=== PATIENT | male | born 1955 | race Caucasian/White ===

== ENCOUNTER 2017-10-05 22:38 | Observation (INO) | payer OTHER ==
[2017-10-05] MEDS ORDERED: SODIUM CHLORIDE 0.9% 1,000 ML IV STA (23:25)
[2017-10-05] MEDS ORDERED: DEXAMETHASONE SOD PHOSPHATE 10 MG/ML 1 ML VIAL IV STA (23:25)
[2017-10-05] MEDS ORDERED: VANCOMYCIN IV PER PHARMACY 1 EACH MISC MISCELLANE PRN (23:38)
[2017-10-05] MEDS ORDERED: AMPICILLIN-SULBACTAM 3 GM in SODIUM CHLORIDE 0.9% 100 ML IVPB STA (23:38)
[2017-10-05] MEDS ORDERED: SODIUM CHLORIDE 0.9% 1,000 ML IV ONE (23:38)
--- NOTE | 2017-10-05 23:38 | ED ---
General Adult HPI - General Chief complaint: Skin/Abscess/Foreign Body Stated complaint: Rash,swelling Time Seen by Provider: 10/05/17 22:57 Source: patient, RN notes reviewed, old records reviewed Mode of arrival: ambulatory Limitations: no limitations - History of Present Illness Initial comments: This is a 8-year-old male the ER for evaluation. Patient does say for evaluation regarding lower extremity rash, fever. Patient states he has a significant medical history, takes no medication. He was seen at urgent care prior to arrival here and sent to the ER for evaluation. He denies cough or congestion denies any other rashes states rashes started today as well as fever. No recent change in medications no travel history no known sick contacts - Related Data Home Medications Medication Instructions Recorded Confirmed Aspirin [Adult Low Dose Aspirin EC] 81 mg PO DAILY 06/20/17 06/20/17 Carvedilol [Coreg] 6.25 mg PO PC-SUPPER 06/20/17 06/20/17 Cyclobenzaprine [Flexeril] 10 mg PO HS 06/20/17 06/20/17 Ergocalciferol [Vitamin D2] 50,000 unit PO FR 06/20/17 06/20/17 Hydrocodone/Acetaminophen 1 each PO DAILY PRN 06/20/17 06/20/17 [Hydrocodon-Acetaminophen 5-325] Pantoprazole Sodium 40 mg PO HS 06/20/17 06/20/17 Ramipril [Altace] 10 mg PO DAILY 06/20/17 06/20/17 Sertraline [Zoloft] 100 mg PO DAILY 06/20/17 06/20/17 Simvastatin [Zocor] 40 mg PO HS 06/20/17 06/20/17 amLODIPine [Norvasc] 5 mg PO DAILY 06/20/17 06/20/17 oxyCODONE HCL/ACETAMINOPHEN 1 tab PO DAILY PRN 06/20/17 06/20/17 [Endocet 5-325 mg] Allergies Allergy/AdvReac Type Severity Reaction Status Date / Time No Known Allergies Allergy Verified 10/05/17 22:54 Review of Systems ROS Statement: Those systems with pertinent positive or pertinent negative responses have been documented in the HPI. ROS Other: All systems not noted in ROS Statement are negative. Past Medical History Past Medical History: CVA/TIA, GERD/Reflux, Hypertension, Myocardial Infarction ([place]), Osteoarthritis ([place]) Additional Past Medical History / Comment(s): series of TIAs 2012-no effects, rectal bleeding 2 months ago, Last Myocardial Infarction Date:: 06/24/2011 History of Any Multi-Drug Resistant Organisms: None Reported Past Surgical History: Adenoidectomy, Heart Catheterization With Stent, Tonsillectomy Past Anesthesia/Blood Transfusion Reactions: No Reported Reaction Date of Last Stent Placement:: 2011 Past Psychological History: Depression Smoking Status: Current every day smoker Past Alcohol Use History: Daily Past Drug Use History: None Reported - Past Family History Brother(s) Family Medical History: Cancer Mother Family Medical History: Cancer General Exam - General Exam Comments Initial Comments: Patient is bilateral lower extremity vasculitic type reaction, petechiae Limitations: no limitations General appearance: alert, in no apparent distress Head exam: Present: atraumatic, normocephalic, normal inspection Eye exam: Present: normal appearance, PERRL, EOMI. Absent: scleral icterus, conjunctival injection, periorbital swelling ENT exam: Present: normal exam, mucous membranes moist Neck exam: Present: normal inspection. Absent: tenderness, meningismus, lymphadenopathy Respiratory exam: Present: normal lung sounds bilaterally. Absent: respiratory distress, wheezes, rales, rhonchi, stridor Cardiovascular Exam: Present: regular rate, normal rhythm, normal heart sounds. Absent: systolic murmur, diastolic murmur, rubs, gallop, clicks GI/Abdominal exam: Present: soft, normal bowel sounds. Absent: distended, tenderness, guarding, rebound, rigid Extremities exam: Present: normal inspection, full ROM, normal capillary refill. Absent: tenderness, pedal edema, joint swelling, calf tenderness Back exam: Present: normal inspection Neurological exam: Present: alert, oriented X3, CN II-XII intact Psychiatric exam: Present: normal affect, normal mood Skin exam: Present: warm, dry, intact, normal color. Absent: rash Course Vital Signs 10/05/17 22:50 Temperature 98.8 F Pulse Rate 108 H Respiratory 18 Rate Blood Pressure 165/100 O2 Sat by Pulse 99 Oximetry EKG Findings - EKG Comments: EKG Findings:: EKG shows sinus rhythm rate of 98, HI 140, QRS 74, QTc 434 Medical Decision Making - Medical Decision Making 8-year-old male the ER for evaluation regarding fever, lower extremity vasculitis. - Lab Data Result diagrams: 10/05/17 23:41 10/05/17 23:41 Disposition Clinical Impression: Vasculitis, Fever, Weakness Disposition: ADMITTED IP TO THIS HOSP Condition: Good Is patient prescribed a controlled substance at d/c from ED?: No
[2017-10-05 23:52] LABS: Basophils % (A) 0 %; Eosinophils # (A) 0.5 k/uL (0-0.7); Eosinophils % (A) 8 %; HCT 51.6 % (39.0-53.0); HGB 17.8 gm/dL (13.0-17.5); Lymphocytes # (A) 1.6 k/uL (1.0-4.8); Lymphocytes % (A) 24 %; MCH 34.2 pg (25.0-35.0); MCHC 34.6 g/dL (31.0-37.0); MCV 98.8 fL (80.0-100.0); Monocytes # (A) 0.3 k/uL (0-1.0); Monocytes % (A) 5 %; Neutrophils # (A) 4.1 k/uL (1.3-7.7); Neutrophils % (A) 61 %; Platelet Count 265 k/uL (150-450); RBC 5.22 m/uL (4.30-5.90); RDW 14.3 % (11.5-15.5); WBC 6.7 k/uL (3.8-10.6)
[2017-10-06] MEDS ORDERED: VANCOMYCIN 2,000 MG in SODIUM CHLORIDE 0.9% 500 ML IVPB ONE ×2
[2017-10-06 00:02] LABS: Appearance,Urine Clear (Clear); Bilirubin,Urine Negative (Negative); Blood,Urine Negative (Negative); Color,Urine Light Yellow; Glucose,Urine (UA) Negative (Negative); Ketones,Urine Negative (Negative); Leukocyte Esterase,Urine Negative (Negative); Nitrite,Urine Negative (Negative); PH, Urine 5.5 (5.0-8.0); Protein,Urine Negative (Negative); Specific Gravity,Urine 1.004 (1.001-1.035); Urobilinogen,Urine <2.0 mg/dL (<2.0)
[2017-10-06 00:05] LABS: ALT 48 U/L (21-72); AST 29 U/L (17-59); Albumin 3.8 g/dL (3.5-5.0); Alkaline Phosphatase 71 U/L (38-126); Anion Gap 10 mmol/L; Blood Urea Nitrogen 11 mg/dL (9-20); Calcium 9.7 mg/dL (8.4-10.2); Carbon Dioxide 23 mmol/L (22-30); Chloride 101 mmol/L (98-107); Glucose 105 mg/dL (74-99); Magnesium 1.8 mg/dL (1.6-2.3); Phosphorus 4.3 mg/dL (2.5-4.5); Potassium 4.5 mmol/L (3.5-5.1); Sodium 134 mmol/L (137-145); Total Bilirubin 0.7 mg/dL (0.2-1.3); Total Protein 6.5 g/dL (6.3-8.2)
[2017-10-06 00:10] LABS: Partial Thromboplastin Time 23.5 sec (22.0-30.0); Prothrombin Time 10.1 sec (9.0-12.0)
[2017-10-06 00:11] LABS: Creatine Kinase 44 U/L (55-170)
[2017-10-06 00:24] LABS: Creatine Kinase MB <0.2 ng/mL (0.0-2.4); Troponin I <0.012 ng/mL (0.000-0.034)
--- NOTE | 2017-10-06 00:42 | XR ---
EXAMINATION TYPE: XR chest 2V DATE OF EXAM: 10/06/2017 COMPARISON: NONE HISTORY: Chest pain TECHNIQUE: Frontal and lateral views of the chest are obtained. FINDINGS: Heart and mediastinum are normal. Lungs are clear. Diaphragm is normal. Bony thorax is int act. There is old right-sided healed rib fracture. There is spurring in the thoracic spine. IMPRESSION: No active cardiopulmonary disease. Normal heart.
[2017-10-06] MEDS: AMPICILLIN-SULBACTAM 3 GM in SODIUM CHLORIDE 0.9% 100 ML IVPB SCH ×4 (05:36→23:53)
[2017-10-06] MEDS: ENOXAPARIN 40 MG/0.4 ML SYRINGE SQ SCH (08:06)
[2017-10-06] MEDS ORDERED: NITROGLYCERIN SL TABS 0.4 MG TAB SUBLINGUAL PRN (14:40)
[2017-10-06] MEDS: VANCOMYCIN 2,000 MG in SODIUM CHLORIDE 0.9% 500 ML IVPB SCH (14:43)
[2017-10-06] MEDS ORDERED: DEXAMETHASONE SOD PHOSPHATE 4 MG/ML 1 ML VIAL IM SCH (15:00)
[2017-10-06] MEDS: DEXAMETHASONE SOD PHOSPHATE 4 MG/ML 1 ML VIAL IVP SCH ×3 (18:09→23:54)
--- NOTE | 2017-10-06 19:56 | HP ---
HISTORY AND PHYSICAL CHIEF COMPLAINT: Petechial rash. HISTORY OF PRESENT ILLNESS: This gentleman was admitted in my absence when he came to emergency room with a rash. It was predominantly on the lower extremities and was red, nummular and in various sizes and quite hemorrhagic. He had no fever, hematuria, joint pain, etc. There is no obvious etiology. He was admitted with a diagnosis of vasculitis. MMODL / IJN: [id number] /
--- NOTE | 2017-10-06 19:56 | PN ---
PROGRESS NOTE CHIEF COMPLAINT: Generalized maculopapular rash. HISTORY OF PRESENT ILLNESS: This gentleman is feeling fairly well, but the rash is not receding. He has not had any hematuria, fever, chills, joint pain, etc. PHYSICAL EXAM: He still has extensive erythematous mostly macular dermatitis of the lower legs, thighs, trunk and arms. The remainder of exam is normal. IMPRESSION: Question vasculitis. Continue workup and evaluation and will start steroids. MMODL / IJN: [id number] /
[2017-10-06] MEDS ORDERED: PANTOPRAZOLE 40 MG TABLET PO SCH (21:00)
[2017-10-07] MEDS: VANCOMYCIN 2,000 MG in SODIUM CHLORIDE 0.9% 500 ML IVPB SCH ×2 (01:16→13:02)
[2017-10-07] MEDS: AMPICILLIN-SULBACTAM 3 GM in SODIUM CHLORIDE 0.9% 100 ML IVPB SCH ×2 (05:37→11:21)
[2017-10-07] MEDS: DEXAMETHASONE SOD PHOSPHATE 4 MG/ML 1 ML VIAL IVP SCH ×2 (05:38→11:21)
[2017-10-07 07:59] LABS: Anion Gap 7 mmol/L; Blood Urea Nitrogen 10 mg/dL (9-20); Calcium 8.9 mg/dL (8.4-10.2); Carbon Dioxide 27 mmol/L (22-30); Chloride 106 mmol/L (98-107); Glucose 146 mg/dL (74-99); Potassium 4.2 mmol/L (3.5-5.1); Sodium 140 mmol/L (137-145)
[2017-10-07] MEDS ORDERED: SERTRALINE 100 MG TAB PO SCH (09:00)
[2017-10-07] MEDS ORDERED: ASPIRIN 81 MG PO SCH (09:00)
[2017-10-07] MEDS ORDERED: CARVEDILOL 6.25 MG TAB PO SCH (09:00)
[2017-10-07] MEDS ORDERED: amLODIPine 5 MG TAB PO SCH (09:00)
[2017-10-07 09:05] LABS: Lyme IgG/IgM 0.1 Index
[2017-10-07] MEDS: ENOXAPARIN 40 MG/0.4 ML SYRINGE SQ SCH (09:06)
[2017-10-07 15:32] VITALS: BP 155/83; PULSE 92; RESP 18; TEMP 98
[2017-10-08] MEDS ORDERED: VANCOMYCIN TROUGH DUE 1 EACH MISC MISCELLANE ONE (12:00)
--- NOTE | 2017-10-09 19:37 | DS ---
DISCHARGE SUMMARY CHIEF COMPLAINT: Pain, swelling, redness and rash in the left arm as well as petechial rashes on the arms, legs and trunk. HISTORY OF PRESENT ILLNESS AND PHYSICAL EXAM: Details of this man's history and physical can be found in the initial workup. LABORATORY STUDIES: While he was in a hospital he had laboratory studies, details of which can be found in the laboratory section of his chart. COURSE IN HOSPITAL: After admission, he was placed on bedrest and started on intravenous fluids and worked up for various etiologies of his rash. He was placed on IV steroids and it began to fade. He had no other problems and it was felt that he could be discharged. He will continue his followup as an outpatient. He will go on to go home on a Medrol Dosepak. FINAL DIAGNOSES: 1. Possible vasculitis, etiology unknown. 2. Chronic obstructive pulmonary disease. OPERATIONS: None. CONSULTATION: None. He is improved. MMODL / IJN: [id number] /
== END 2017-10-07 18:00 | disposition home or self-care (01) ==
LOC: EC 22:38 → 3SUR 23:37 → INTOOBSV 23:37 → UNDODISIN 10-07 18:00
PROVIDERS: ADMIT Family Medicine; ATTEND Family Medicine
DX: R21 Rash and other nonspecific skin eruption (principal); R23.3 Spontaneous ecchymoses; R50.9 Fever, unspecified; M79.602 Pain in left arm; R53.1 Weakness; L30.9 Dermatitis, unspecified; M79.89 Other specified soft tissue disorders; F17.200 Nicotine dependence, unspecified, uncomplicated; J44.9 Chronic obstructive pulmonary disease, unspecified; M19.90 Unspecified osteoarthritis, unspecified site; Z86.73 Personal history of transient ischemic attack (TIA), and cerebral infarction without residual deficits; I25.2 Old myocardial infarction; I10 Essential (primary) hypertension; Z79.82 Long term (current) use of aspirin; Z79.899 Other long term (current) drug therapy; K21.9 Gastro-esophageal reflux disease without esophagitis; Z95.5 Presence of coronary angioplasty implant and graft; F32.9 Major depressive disorder, single episode, unspecified; Z80.9 Family history of malignant neoplasm, unspecified
CPT/HCPCS: 96376 ×2; 96361 ×2; 96366 ×2; 96372 ×2; 96365; 96367; 96375; 99285; 36415; 93005; 97161; 80053; 80048; 85652; 82550; 82553; 83735; 84100; 84484; 85025; 85610; 85730; 81003; 87040; 86618; 86038; 87086; 71046; G0378 ×3; J3370 ×2; J1100 ×3; J1650 ×2; J0295 ×2

== ENCOUNTER → 2019-01-07 | Outpatient (CLI) | payer OTHER ==
--- NOTE | 2019-01-08 10:28 | MR ---
EXAMINATION TYPE: MR knee RT wo con DATE OF EXAM: 01/07/2019 COMPARISON: Outside images of the right knee dated 12/23/2018 HISTORY: Outer right knee pain TECHNIQUE: Multiplanar, multisequence imaging of the right knee is performed without IV contrast. FINDINGS: MEDIAL MENISCUS: There is some high signal in the inferior aspect of the meniscal body and posterior horn of the medial meniscus with a very small radial tear of the free edge of the posterior horn of t he medial meniscus. High signal is related to meniscal contusion. LATERAL MENISCUS AND ASSOCIATED STRUCTURES: There is an oblique tear of posterior horn of the lateral meniscus contiguous with the inferior articular surface with underlying bone marrow edema of the pos terior lateral corner of the knee, mild. There is also a radial tear of the posterior horn of the lat eral meniscus and diminutive appearance of the meniscal body. The anterior horn and meniscal roots kirk th appear intact. There is an associated parameniscal cyst measuring 7 mm. There is no evidence of me niscal extrusion. There is a partial thickness tear of the meniscal femoral ligament with linear incr eased signal on coronal fat-sat PD image 21. The popliteus tendon displays mild increased signal of t he myotendinous junction without discrete tear. The lateral collateral ligament and biceps femoris te ndon are intact. CRUCIATE LIGAMENTS: There is abnormal orientation of the anterior cruciate ligament with subtle laxit y seen and increased signal throughout indicative of a low-grade partial-thickness tear. Posterior cr uciate ligament is intact and unremarkable. COLLATERAL LIGAMENTS: The medial collateral ligament and lateral collateral ligament complex are inta ct and unremarkable. EXTENSOR MECHANISM: Visualized quadriceps and patellar tendons are intact. There is minimal increased signal of the insertional fibers of both the quadriceps and patellar tendon. EFFUSION: A physiologic amount of fluid is seen in the suprapatellar fossa, however there is some in ternal debris such as on PD axial fat sat image 21 that can be seen in synovitis. POPLITEAL CYST: There is a multiloculated popliteal cyst that is seen. TRICOMPARTMENT SPACES: There are small tricompartmental osteophytes and mild medial compartment joint space narrowing. CARTILAGE: There is increased signal in the patellofemoral cartilage and generalized thinning of the lateral patellar facet. Focal fissure is seen of the patellar apex. In the lateral compartment there is a partial thickness cartilaginous defect of the weightbearing surface anteriorly on the lateral fe moral condyle measuring 1.2 cm. In the medial compartment there is a central partial thickness defect of the weightbearing surface measuring 9 mm. BONE MARROW SIGNAL: Posterior lateral corner opposing surface lateral femoral condyle and more pronou nced tibial plateau bone marrow edema is overall mild. OTHER: There is a small amount of nonspecific prepatellar and infrapatellar subcutaneous edema. IMPRESSION: 1. Oblique tear of the posterior horn of lateral meniscus contiguous with the inferior articular surf nery and radial tear of the posterior horn of the lateral meniscus. There is other evidence of low-gra de posterior lateral corner injury as there is a partial tear of the meniscofemoral ligament, mild kirk ne marrow edema of the lateral femoral condyle and tibial plateau, this tear of the ACL, and mild ten dinosis of the popliteus muscle at the myotendinous junction. There is also a 7 mm parameniscal cyst. 2. Subtle and minimal radial tear of the posterior horn of the medial meniscus at its free edge. Meni scal contusion versus myxoid degeneration is also seen of the inferior aspect of the medial meniscal body. 3. Complexity of the suprapatellar joint fluid (although there is a physiologic amount of fluid prese nt). Internal complexity can be seen in synovitis. 4. Mild tricompartmental arthrosis and chondrosis with partial-thickness tears of the medial and late ral compartments and fissure of the patellar apex. 5. Minimal increased signal of the insertional fibers of the quadriceps and patellar tendons suggesti ng mild tendinosis. Nonspecific overlying prepatellar and infrapatellar subcutaneous edema.
== END | disposition home or self-care (01) ==
LOC: RADMRIMAIN 11:02
PROVIDERS: ATTEND Orthopaedic Surgery
DX: S83.281A Other tear of lateral meniscus, current injury, right knee, initial encounter (principal); S83.241A Other tear of medial meniscus, current injury, right knee, initial encounter; S83.501A Sprain of unspecified cruciate ligament of right knee, initial encounter; M17.11 Unilateral primary osteoarthritis, right knee; M67.863 Other specified disorders of tendon, right knee

== ENCOUNTER 2019-02-05 07:30 | Day surgery (SDC) | payer OTHER ==
[2019-02-01 12:49] VITALS: BMI 33.1
--- NOTE | 2019-02-04 09:28 | HP ---
HISTORY AND PHYSICAL CHIEF COMPLAINT: Right knee pain. HISTORY OF PRESENT ILLNESS: The patient is a 63-year-old male who presents with progressive right knee pain along with giving way over the past several months. He notes intermittent giving way. He has been using a cane. He has tried an injection and medications with only partial temporary relief. PAST MEDICAL HISTORY: Significant for depression, hypercholesterolemia, chronic obstructive pulmonary disease, coronary artery disease, hypertension. PAST SURGICAL HISTORY: Significant for a cardiac stent placed placement. CURRENT MEDICATIONS: 1. Amlodipine. 2. Carvedilol. 3. Cyclobenzaprine. 4. Hydrocodone. 5. Ramipril. 6. Simvastatin. 7. Sertraline. He denies drug allergies. FAMILY HISTORY: Significant for cancer. SOCIAL HISTORY: Significant for 1-1/2 pack per day tobacco use and daily alcohol use. 16 POINT REVIEW OF SYSTEMS: Otherwise reviewed and is noncontributory. PHYSICAL EXAMINATION: On examination, the patient is approximately 6 foot 3, 260 pounds of endomorphic habitus. HEENT exam is nonfocal. NECK: Supple. He has painless passive motion of the right hip. Straight leg raise is negative. Active motion right knee -12 to 100 degrees of flexion. He has mild effusion. He is tender about the lateral joint line. Collaterals are stable, Reba is negative, Nitin's elicits lateral pain. His distal neurovascular appears intact in the right lower extremity. MRI report from 01/07/2019 of the right knee shows a posterior lateral meniscal tear along with ACL sprain. Mild tricompartmental osteoarthrosis noted. IMPRESSION: Symptomatic right knee lateral meniscal tear. RECOMMENDATIONS: I talked to the patient at length regarding his condition along with treatment options. At this point, he is quite symptomatic, having pain and mechanical symptoms despite adequate conservative measures. After thorough discussion, he opts to proceed with surgery. We will plan to proceed with arthroscopic evaluation of the right knee with possible partial lateral meniscectomy. Risks and benefits were discussed at length in layman's terms. We will likely perform that as an outpatient procedure. MMODL / IJN: [id number] / MTDD
[~2019-02-05 07:30] MED LIST: DEXAMETHASONE SOD PHOSPHATE 10 MG/ML 1 ML VIAL IV ONE; LACTATED RINGERS 1,000 ML IV SCH; LIDOCAINE 1% 20 ML VIAL (10MG/ML) FOR IV START INTRADERMA PRN; MIDAZOLAM 2 MG/2 ML VIAL IV PRN; ONDANSETRON 4 MG/2 ML VIAL IVP ONE; SCOPOLAMINE 1.5MG/72HR PATCH TRANSDERM ONE; ceFAZolin 3 GM in SODIUM CHLORIDE 0.9% 100 ML IVPB ONE
[2019-02-05] MEDS ORDERED: METOPROLOL TARTRATE 5 MG/5 ML VIAL IVP ONE (09:40)
[2019-02-05] MEDS ORDERED: diphenhydrAMINE 50 MG/ML 1 ML VIAL ONE (10:43)
[2019-02-05] MEDS ORDERED: LIDOCAINE 1% INJ 10MG/ML (20 ML MDV) ONE (10:43)
[2019-02-05] MEDS ORDERED: MIDAZOLAM 2 MG/2 ML VIAL ONE (10:43)
[2019-02-05] MEDS ORDERED: SUCCINYLCHOLINE CHLORIDE VIAL 200 MG/10 ML VIAL IV ONE (10:43)
[2019-02-05] MEDS ORDERED: KETAMINE 10 MG/ML 20 ML VIAL ONE (10:43)
[2019-02-05] MEDS ORDERED: PROPOFOL 10 MG/ML 20 ML VIAL IV ONE (10:43)
[2019-02-05] MEDS ORDERED: fentaNYL (PF) 50 MCG/ML 2 ML AMP ONE (10:43)
[2019-02-05] MEDS ORDERED: ALBUTEROL INHALER 60 PUFF/8 GM INHALER INHALATION ONE (10:43)
[2019-02-05] MEDS ORDERED: EPINEPHrine (PF) 1 ML in SODIUM CHLORIDE 0.9% IRRIGATIO 3,000 ML IRRIGATION ONE ×4 (11:12)
--- NOTE | 2019-02-05 11:46 | P.OP ---
Date of Procedure: 02/05/19 Preoperative Diagnosis: Right knee internal derangement Postoperative Diagnosis: Right knee middle one third lateral meniscal tear/posterior medial meniscal tear/reactive synovitis of the medial, lateral, and patellofemoral compartments Procedure(s) Performed: Right knee arthroscopic partial lateral meniscectomy/partial medial meniscectomy/partial synovectomy of the medial, lateral, and patellofemoral compartments. Anesthesia: GETA Surgeon: Zeeshan Oh Estimated Blood Loss (ml): 10 Pathology: none sent Condition: stable Disposition: PACU Indications for Procedure: The patient is a 63-year-old male presents with progressive right knee pain and mechanical symptoms despite conservative measures. A discussion of the risks and benefits of operative intervention was made with patient. He opted to proceed with surgery. Operative risks to include infection, neurovascular injury, development of blood clots, possible incomplete resolution of symptoms, possible worsening symptoms and need for subsequent procedures was discussed. Informed consent was obtained. Operative Findings: As below Description of Procedure: The patient was brought to the operating room, and after induction of general anesthesia examined the right knee. Collaterals were stable, Reba was negative, and posterior drawer was negative. The right lower extremity was prepped and draped in a normal fashion. A superior lateral portal was made through a 3 mm skin incision superior and lateral to the patella. This was used for outflow. A lateral portal was made through a 5 mm vertical skin incision lateral to the patella tendon above the joint line. Diagnostic arthroscopy was performed. On inspection of the medial compartment, and oblique tear was noted involving the middle to posterior one third in the white-white junction.. This was debrided back to stable base with straight baskets and a motorized shaver. On inspection of the notch, the anterior cruciate ligament appeared to be intact. On inspection of the lateral compartment a complex tear involving the anterior to middle one third was noted in the white-red junction. This was debrided back to stable base with straight baskets and a motorized shaver. The remaining lateral meniscus was stable and intact.. On inspection of the patellofemoral articulation there was chondral fibrillation however no loose chondral fragments. The gutters were clear debris. The knee was then thoroughly irrigated. The portals were closed with Steri-Strips. A sterile dressing was applied in addition to a compression stocking. The patient was awoken from general anesthesia and transferred to recovery room in good condition. Blood loss was estimated at 10 mL. No complications were incurred.
[2019-02-05 11:55] VITALS: TEMP 97.4
[2019-02-05] MEDS: HYDROmorphone 0.5 MG/0.5 ML SYRINGE IVP PRN ×2 (11:59→12:05)
[2019-02-05] MEDS: fentaNYL (PF) 50 MCG/ML 2 ML AMP IVP ONE ×2 (12:13→12:18)
[2019-02-05 12:35] VITALS: BP 151/80; PULSE 70; RESP 18
== END 2019-02-05 13:05 | disposition home or self-care (01) ==
LOC: OR 07:30
PROVIDERS: ATTEND Orthopaedic Surgery
DX: S83.241A Other tear of medial meniscus, current injury, right knee, initial encounter (principal); S83.281A Other tear of lateral meniscus, current injury, right knee, initial encounter; X58.XXXA Exposure to other specified factors, initial encounter; I10 Essential (primary) hypertension; E78.00 Pure hypercholesterolemia, unspecified; F32.9 Major depressive disorder, single episode, unspecified; J44.9 Chronic obstructive pulmonary disease, unspecified; I25.811 Atherosclerosis of native coronary artery of transplanted heart without angina pectoris; E78.5 Hyperlipidemia, unspecified; I25.2 Old myocardial infarction; Z95.5 Presence of coronary angioplasty implant and graft; K21.9 Gastro-esophageal reflux disease without esophagitis; F17.210 Nicotine dependence, cigarettes, uncomplicated; Z80.9 Family history of malignant neoplasm, unspecified; Z79.899 Other long term (current) drug therapy
CPT/HCPCS: 84132; 29880; J2250; J0330; J1200; J1100; J0690; J2405; J0171; J2001; J3010; J2704; J1170

== ENCOUNTER 2020-10-21 18:59 | Emergency (ER) | payer OTHER ==
[2020-10-21 19:17] VITALS: BP 105/65; PULSE 79; RESP 16; TEMP 97.6
--- NOTE | 2020-10-21 19:40 | ED ---
Fall HPI - General Chief Complaint: Fall Stated Complaint: ETOH/Fall Time Seen by Provider: 10/21/20 19:15 Source: patient, EMS Mode of arrival: EMS - History of Present Illness Initial Comments: Patient is a 65-year-old male who presents emergency Department with reported left shoulder pain. Patient reports that he was at the [employer] when he fell onto his left shoulder and face. She denies loss of consciousness. He was reporting to left shoulder pain. Unable to get up on his own and therefore the [employer] employment service specialist called EMS. He was not given anything for pain control. Denies any numbness tingling or weakness into his hand. No hand, wrist or elbow pain. He does have dry blood noted to his right nare. No active bleeding. He denies any headaches, visual changes or neck pain. No shortness of breath. No pain in his lower extremities. Patient not on any blood thinners. No syncope. No other alleviating, precipitating or modifying factors - Related Data Home Medications Medication Instructions Recorded Confirmed Ergocalciferol [Vitamin D2 50,000 unit PO Q30D 06/20/17 02/05/19 (DRISDOL)] Hydrocodone/Acetaminophen 1 tab PO BID PRN 06/20/17 02/05/19 [Hydrocodone/Acetaminophen 5-325] Pantoprazole Sodium 40 mg PO HS 06/20/17 02/05/19 Sertraline [Zoloft] 100 mg PO Q2D 06/20/17 02/05/19 Simvastatin [Zocor] 40 mg PO HS 06/20/17 02/05/19 amLODIPine [Norvasc] 5 mg PO QAM 06/20/17 02/05/19 carvediloL [Coreg] 6.25 mg PO QAM 06/20/17 02/05/19 Nitroglycerin Sl Tabs [Nitrostat] 0.4 mg SUBLINGUAL Q5M PRN 10/06/17 02/05/19 QUEtiapine [SEROquel] 25 mg PO HS 02/01/19 02/05/19 Ramipril [Altace] 10 mg PO QAM 02/01/19 02/05/19 Previous Rx's Medication Instructions Recorded Ibuprofen 800 mg PO BID PRN #30 tablet 02/05/19 Allergies Allergy/AdvReac Type Severity Reaction Status Date / Time No Known Allergies Allergy Verified 02/01/19 12:33 Review of Systems ROS Statement: Those systems with pertinent positive or pertinent negative responses have been documented in the HPI. ROS Other: All systems not noted in ROS Statement are negative. Past Medical History Past Medical History: CVA/TIA, GERD/Reflux, Hypertension, Myocardial Infarction ([place]), Osteoarthritis (OA) Additional Past Medical History / Comment(s): series of TIAs 2012-no effects, rectal bleeding occas. Last Myocardial Infarction Date:: 06/24/2011 History of Any Multi-Drug Resistant Organisms: None Reported Past Surgical History: Adenoidectomy, Heart Catheterization With Stent, Tonsillectomy Additional Past Surgical History / Comment(s): heart stent x1,all top teeth removed with anesthesia at oral surgeon's office Past Anesthesia/Blood Transfusion Reactions: No Reported Reaction Additional Past Anesthesia/Blood Transfusion Reaction / Comment(s): no hx blood transfusion Date of Last Stent Placement:: 2011 Past Psychological History: Depression Smoking Status: Current every day smoker Past Alcohol Use History: Abuse, Daily Past Drug Use History: None Reported - Past Family History Brother(s) Family Medical History: Cancer Mother Family Medical History: Cancer General Exam Limitations: no limitations General appearance: alert, in no apparent distress, appears intoxicated Head exam: Present: normocephalic, normal inspection, other (dried blood noted around right nare) Eye exam: Present: normal appearance, PERRL, EOMI. Absent: scleral icterus, conjunctival injection, periorbital swelling ENT exam: Present: normal exam, mucous membranes moist Neck exam: Present: normal inspection. Absent: tenderness, meningismus, lymphadenopathy Respiratory exam: Present: normal lung sounds bilaterally. Absent: respiratory distress, wheezes, rales, rhonchi, stridor Cardiovascular Exam: Present: regular rate, normal rhythm, normal heart sounds. Absent: systolic murmur, diastolic murmur, rubs, gallop, clicks GI/Abdominal exam: Present: soft, normal bowel sounds. Absent: distended, tenderness, guarding, rebound, rigid Extremities exam: Present: tenderness (left shoulder. Patient can abduct to 90 degrees without difficulty but has pain with aduction greater than 90 degrees), normal capillary refill. Absent: pedal edema, joint swelling, calf tenderness Back exam: Present: normal inspection Neurological exam: Present: alert, oriented X3, CN II-XII intact Psychiatric exam: Present: normal affect, normal mood Skin exam: Present: warm, dry, intact, normal color. Absent: rash Course Vital Signs 10/21/20 19:12 Temperature 97.6 F Pulse Rate 79 Respiratory 16 Rate Blood Pressure 105/65 O2 Sat by Pulse 100 Oximetry Medical Decision Making - Medical Decision Making Upon arrival the patient is placed into room 12. Thorough history and physical exam was performed. Patient is offered something for pain control however refuses. Patient originally agreed to CT of the brain, C-spine and facial bones because of his external signs of trauma. X-ray of the left shoulder is performed however afterwards the patient does refuse CT of the head. He is alert, oriented and capable of making his own decisions at this time. Patient is requesting to leave at this time. Did recommend imaging. Patient is aware of the risks of not completing full evaluation or waiting for the results of his left shoulder x-ray. He is accepting of the risks and able to recite them in his own words. Patient informed that he will be leaving AGAINST MEDICAL ADVICE for which he did agree to. Patient's brother was updated via phone. Patient left AMA Disposition Clinical Impression: Fall, Alcohol use disorder, Left shoulder pain Disposition: Left Against Medical Advice Condition: Stable Is patient prescribed a controlled substance at d/c from ED?: No Referrals: Maxim Villarreal MD [Primary Care Provider] - 1-2 days
--- NOTE | 2020-10-21 21:14 | XR ---
Result: Clinical History: Pain status post fall. Comparison: None available. Technique: 3 views of the left shoulder. Findings: The bone mineralization is appropriate for age. There is subtle nondisplaced fracture of the left humeral greater tuberosity. No evidence of dislocat ion. There are mild to moderate degenerative changes of the visualized joint spaces. Impression: Subtle fracture of the left greater tuberosity.
== END 2020-10-21 20:37 | disposition left against medical advice (07) ==
LOC: EC 18:59
DX: M25.512 Pain in left shoulder (principal); F10.10 Alcohol abuse, uncomplicated; F32.9 Major depressive disorder, single episode, unspecified; I10 Essential (primary) hypertension; I25.2 Old myocardial infarction; K21.9 Gastro-esophageal reflux disease without esophagitis; M19.90 Unspecified osteoarthritis, unspecified site; F17.200 Nicotine dependence, unspecified, uncomplicated; Z86.73 Personal history of transient ischemic attack (TIA), and cerebral infarction without residual deficits; Z95.5 Presence of coronary angioplasty implant and graft; W18.30XA Fall on same level, unspecified, initial encounter; Y90.9 Presence of alcohol in blood, level not specified
CPT/HCPCS: 99284